=== PATIENT | female | born 1995 | race Hispanic/Latino ===

== ENCOUNTER 2019-07-03 22:35 | Day surgery (SDC) | payer OTHER ==
[2019-07-03 22:56] VITALS: BMI 19.9
[2019-07-03] MEDS ORDERED: hydrALAZINE 20 MG/ML VIAL SLOW IVP PRN (23:27)
[2019-07-04 00:33] LABS: Bacteria/HPF None Seen HPF (None Seen); Bilirubin Negative (Negative); Blood, Urine 1+ (Negative); Clarity Turbid (Clear); Glucose, Urine (Dipstick) Normal (Negative); Leukocyte Negative Leu/uL (Negative); Nitrite Negative (Negative); Protein, Urine (Dipstick) 10 mg/dL (Neg-Trace); Squamous Epithelial 0-3 HPF (0-3); Urobilinogen Normal mg/dL (Less than 2); WBC/HPF 0-3 HPF (0-3)
[2019-07-04 00:34] LABS: Urine Culture Reflex No No
--- NOTE | 2019-07-04 01:03 | PDOC.LDHP ---
Labor and Delivery H&P Chief complaint: other (Spotting during urination) HPI: Mrs. Ronald Smalls is a 23 y/o female at 31W GA dated by 1st trimester US who presents to L&D because of an isolated episode of spotting during urination earlier this evening. The patient states that while she was urinating she felt an uncomfortable increase in her voided fluid, and noticed that there were several drops of blood in the toilet immediately thereafter. Mrs. Ronald Smalls was initially unconcerned, but eventually decided to present to L&D "just to be sure that nothing was wrong." She admits to some occasional abdominal cramping, but denies any significant abdominal pain, repeat episodes of bleeding, dysuria, polyuria, vaginal discharge, ongoing STI, history of hemorrhoids, bloody stools, N/V/D, chest pain, shortness of breath, headaches or changes in vision. In L&D, Mrs. Ronald Smalls had vital signs that were all within normal limits. heart tones were reassuring, with a baseline in the 140s, with positive accelerations and absent decelerations. No contractions were present. Current gestational age (weeks): 31 Due date: 09/04/19 Dating criteria: first trimester ultrasound Grav: 1 Para: 0 OB History Details: Mrs. Ronald Smalls reports no significant problems during this , aside from a recent Chlamydia infection that was treated with antibiotics (HERNAN pending). She reports good weight gain, movement, and a lack of worrisome symptoms such as headaches, changes in vision, chest pain, or shortness of breath. Current complications: none Abnormal US findings: No Past Medical History: None. Current medications: pre- vitamins Previous surgical history: none Allergies/Adverse Reactions: Allergies Allergy/AdvReac Type Severity Reaction Status Date / Time No Known Allergies Allergy Verified 07/03/19 22:51 Social history: none - Physical Exam Vital signs reviewed and normal: yes General: NAD, resting Heart: RRR Lungs: nonlabored breathing Abdomen: NTTP Extremeties: no edema FHT: category 1 [place] contractions every: None - OB Labs Blood type: A RH: negative Antibody Screen: unknown HIV: negative RPR: negative HEPSAg: unknown 1 hour GCT: unknown GBS: unknown Urine drug screen: not done - Plan Plan: observation in L&D -: 1. Spotting during Urination -Likely benign, possibly secondary to internal hemorrhoids -Patient lacks worrisome abdominal pain or trauma -Recent STI treated with antibiotics, HERNAN results pending -Patient will f/u with PCP on 07/13/19 at Clinic -UA performed in L&D lacked Leukocyte Esterase, Nitrites, WBCs, or +++Bacteria -UA Culture: Pending -Patient was advised to return to L&D if she felt a gush of fluid, if vaginal discharged occurred, if excessive bleeding occurred or would not stop, or if significant ABD pain occurred Dispo: PATSY Addendum - Attending - Attending Attestation Date/Time: 07/04/19 2907 I personally evaluated the patient and discussed the management with Dr. Barakat I agree with the History, Examination, Assessment and Plan documented above with any addition or exceptions noted below. Pt presented with isolated episode of spotting. no other complaints vital signs 109/66 78 98.4 nad fht baseline 140s mod ltv +accels, no decels; toco with irritability us neg for le,nitrites, bacteria, wbc a/p discharged home with reassurance. f/u as scheduled with primary ob, seek medical attention if bleeding worsens or persists
== END 2019-07-04 00:54 | disposition home health service (06) ==
LOC: L&D/OP 22:35
PROVIDERS: ATTEND Obstetrics & Gynecology
DX: O26.853 Spotting complicating pregnancy, third trimester (principal); Z3A.31 31 weeks gestation of pregnancy
CPT/HCPCS: 81001; 87086; 99283

== ENCOUNTER 2019-09-06 19:05 | Day surgery (SDC) | payer OTHER ==
[2019-09-06 20:12] VITALS: BP 121/87; BMI 21.2
[2019-09-06 20:19] VITALS: TEMP 99.3
--- NOTE | 2019-09-06 22:02 | PDOC.FPRHP ---
- History of Present Illness Chief Complaint: Contractions History of Present Illness: Mrs. Noonan is a 24 y/o female who presents to the LD with a CC of contractions. She states that the contractions began intermittently yesterday, but today they have increased in frequency and become more regularly. Additionally, she states that she lost her mucous plug and has had minimal bloody discharge. She denies any significant loss of fluid or loss of movement, as well as headaches, changes in vision, chest pain, SOB, N/V /D, fevers, chills or recent trauma. - Allergies/Adverse Reactions Allergies Allergy/AdvReac Type Severity Reaction Status Date / Time No Known Allergies Allergy Verified 09/06/19 20:13 - History PMHx: PSHx: FHx: Social: - Vital signs BP: [] HR: [] RR: [] Tmax: [] Pox: []% on [] Wt: [] FMR H&P: Upper Level - Plan Date/Time: 09/06/19 2200 I, [], have evaluated this patient and agree with findings/plan as outlined by technology risk intern resident. Pertinent changes/additions are listed here.
--- NOTE | 2019-09-06 22:04 | PDOC.FPROB ---
FMR OB H&P: HPI - History of Present Illness Chief Complaint: Contractions History of Present Illness: Mrs. Noonan is a 24 y/o female who presents to the LD with a CC of contractions. She states that the contractions began intermittently yesterday, but today they have increased in frequency and have become more regular. Additionally, she states that she lost her mucous plug and has had minimal bloody discharge. She denies any significant loss of fluid or loss of movement, as well as headaches, changes in vision, chest pain, SOB , N/V/D, fevers, chills or recent trauma. She is currently scheduled for IOL on 09/07/19 at 1900. Primary Care Physician: Dr. Setphanie Isbell ([facility]) FMR OB H&P: Current - Care : 1 Para: 0 Gestational age: 40.2W Dating Criteria: 8W US Course/Complications: Chlamydia infection, treated empirically with antibiotics. HERNAN confirmed. - OB Labs Blood type: A RH: positive Antibody Screen: negative HIV: negative RPR: negative HepBsAg: negative Rubella: immune Quad screen: unknown Urine drug screen: not done Gonorrhea: negative Chlamydia: negative GBS: negative FMR OB H&P: History - Past Medical History PMH: Anemia - OB History OB History: , complicated by Chlamydia infection. 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 - Surgical History Sx History: None - Social History Social History: Denies x3 - Family History Family History: Non-Contributory FMR OB H&P: Medications - Current Allergies/Adverse Reactions: Allergies Allergy/AdvReac Type Severity Reaction Status Date / Time No Known Allergies Allergy Verified 09/06/19 20:13 FMR OB H&P: ROS - Review of Systems General: reports: fatigue. denies: fever/chills, recent trauma Eyes: denies: eye pain, vision changes, scotomas, floaters ENT: denies: nasal congestion, rhinorrhea, frequent nose bleed, ringing in ears , sore throat Cardiovascular: denies: chest pain, edema Respiratory: denies: cough, congestion, shortness of breath Gastrointestinal: reports: abdominal pain (Contractions). denies: indigestion, cramping, nausea, vomiting, diarrhea Genitourinary (Female): reports: vaginal discharge (Mucous Plug), vaginal bleeding (Scant), contractions. denies: incontinence, dysuria, vaginal pain, vaginal pressure Neurologic: denies: numbness, syncope, seizures, weakness, headache Breast: denies: nipple changes, pain/tenderness, other (Denies Discharge) Hematologic/Lymphatic: denies: prolonged or excessive bleeding FMR OB H&P: Vital Signs - Maternal Vital signs: Vital Signs - First Documented Temp Pulse Resp BP Pulse Ox 99.3 F 78 14 121/87 98 09/06/19 19:23 09/06/19 19:23 09/06/19 19:23 09/06/19 19:23 09/06/19 19:23 - Heart Tones Baseline: 140 Variability: moderate Acceleration: present Deceleration: absent [place] contractions every: Q6M FMR OB H&P: Physical Exam - Physical Exam General: NAD, awake, alert and oriented HEENT: normocephalic and atraumatic, PERRLA, EOMI, MMM, conjunctiva clear, no scleral icterus, grossly normal vision, grossly normal hearing, normal nasal mucosa, oropharynx clear, good dention Neck: supple, FROM, trachea midline, no LAD Chest: non-tender to palpation, no lesions Breast: symmetric, non-tender, no skin changes Heart: RRR, normal S1/S2, no murmurs/rubs/gallops, pulses present, no edema General: CTAB, no respiratory distress, good air movement, no rales/rhonchi, no wheezing, no retractions Abdomen: gravid, non-tender, no masses Musculoskeletal: pulses present, FROM in all four extremities, no misalignment/ asymmetry, no atrophy Neurological: sensation to pain,touch and proprioception grossly normal Skin: no rash, no jaundice Lymphatic: no unusual bruising or bleeding, no purpura, no petechia, no LAD Psychiatric: intact recent and remote memory, good judgement and insight, normal mood and affect - Pelvic Exam Vulva: normal hair distribution, no masses, no lesions, no discharge, normal rugae Cervix: no masses SVE: 60/-3 Dc score: 3 Membranes: Intact Presentation: Cephalic FMR OB H&P: A/P Disposition: 1. Labor Check -Patient history and physical exam consistent w/ contractions -Mucous Plug lost on 09/06/19 -No loss of fluid noted, only scant bleeding -FHT measured in 140s, with moderate variability, present accelerations and absent decelerations -Physical exam unremarkable -Initial SVE was 60/-3 Dispo: Monitor on L&D for ~2H to assess for additional cervical change. If no cervical change occurs and maternal vitals / FHT remain stable, DC to home with strict return instructions if contractions increase in frequency or if loss of fluid or bloody show occurs. Expected LOS < 4H Discussion: Date/Time: 09/06/192202 This H&P was discussed with [] and [] who agree with the above documentation and plan. Addendum - Attending - Attending Attestation Date/Time: 09/07/19231 I personally evaluated the patient and discussed the management with Dr. Huston. I agree with the History, Examination, Assessment and Plan documented above with any addition or exceptions noted below.
== END 2019-09-06 21:55 | disposition home or self-care (01) ==
LOC: L&D/OP 19:05
PROVIDERS: ATTEND Family Medicine
DX: O47.1 False labor at or after 37 completed weeks of gestation (principal); O48.0 Post-term pregnancy; Z3A.40 40 weeks gestation of pregnancy

== ENCOUNTER 2019-09-07 19:14 | Inpatient (IN) | payer MEDICAID, OTHER, SELFPAY ==
[2019-09-07] MEDS: Lactated Ringer's 1,000 ML IV SCH (20:00)
[2019-09-07 20:51] LABS: Hemoglobin 12.3 g/dL (12.0-16.0); Mean Corpuscular HGB CONC 34.1 g/dL (32.0-36.0); Mean Corpuscular Volume 76.3 fL (78.0-98.0); Mean Platelet Volume 10.5 fL (7.4-10.4); Platelet Count 164 thou/uL (130-400); RBC Distribution Width 19.3 % (11.5-14.5); Red Blood Cell (RBC) Count 4.71 mill/uL (4.20-5.40); White Blood Cell (WBC) Count 9.4 thou/uL (4.8-10.8)
[2019-09-07 21:11] VITALS: BMI 21.2
[2019-09-07] MEDS ORDERED: Ibuprofen 800 MG TAB PO PRN (21:18)
[2019-09-07] MEDS ORDERED: Diphenoxylate HCl/Atropine Tablet PO PRN ×2 (21:18)
[2019-09-07] MEDS ORDERED: Lidocaine 1% (PF) 30 ML VIAL SC PRN (21:18)
[2019-09-07] MEDS ORDERED: Promethazine HCl 25 MG/ML VIAL IM PRN (21:18)
[2019-09-07] MEDS ORDERED: hydrALAZINE 20 MG/ML VIAL SLOW IVP PRN (21:18)
[2019-09-07] MEDS ORDERED: Methylergonovine 0.2 MG/ML VIAL IM PRN (21:18)
[2019-09-07] MEDS ORDERED: Carboprost 250 MCG/ML AMP IM PRN (21:18)
[2019-09-07] MEDS ORDERED: Ondansetron PF 4 MG/2 ML Vial IVP PRN (21:18)
[2019-09-07] MEDS ORDERED: Acetaminophen 500 MG TAB PO PRN (21:18)
[2019-09-07] MEDS ORDERED: Misoprostol 200 MCG TAB PR PRN (21:18)
[2019-09-07] MEDS ORDERED: Butorphanol Tartrate 1 MG/ML VIAL SLOW IVP PRN (21:18)
[2019-09-07 21:27] LABS: Syphilis Antibody Nonreactive (Nonreactive); Syphilis Antibody Index 0.03 S/CO (<1.00 Non-Reactive)
--- NOTE | 2019-09-07 21:58 | PDOC.FPROB ---
FMR OB H&P: HPI - History of Present Illness Chief Complaint: IOL History of Present Illness: Mrs. Noonan is a 24 y/o female at 40.3W GA by 8W US who presents to L&D for IOL. She presented to L&D 1 day prior with a CC of contractions, and states that her contractions have been consistent in intensity and occurring Q5-7M since that time. She recently lost her mucous plug and has had minimal bloody discharge since that time. She denies any significant loss of fluid or loss of movement, as well as headaches, changes in vision, chest pain, SOB, N/V/D, fevers, chills or recent trauma. Primary Care Physician: Dr. Stephanie Isbell ([facility]) FMR OB H&P: Current - Care : G1 Para: 0 Gestational age: 40.3W Dating Criteria: 8W US Total weight gain: 10 LBS Course/Complications: Chlamydia infection, treated empirically w/ HERNAN - OB Labs Blood type: A RH: positive Antibody Screen: negative HIV: negative RPR: negative HepBsAg: negative Rubella: immune Quad screen: unknown Urine drug screen: not done Gonorrhea: negative Chlamydia: negative GBS: negative H&H: 12.3 / 35.9 Platelets: 164 FMR OB H&P: History - Past Medical History PMH: Remote Chlamydia Infection, Anemia - OB History OB History: - INFORMATION STRATEGIST History INFORMATION STRATEGIST History: None - Surgical History Sx History: None - Social History Social History: Denies x3 - Family History Family History: Non-Contributory FMR OB H&P: Medications - Current Home Medications: Medication Instructions Recorded Confirmed Type Ferrous Sulfate 1 tab PO DAILY 09/07/19 09/07/19 History Acetaminophen [Tylenol Regular 650 mg PO Q4H PRN tab 09/10/19 Rx Strength] Docusate Calcium [Surfak] 240 mg PO BID #60 cap 09/10/19 Rx Ibuprofen [Motrin] 800 mg PO Q8HR #30 tab 09/10/19 Rx Vitamin 1 tab PO DAILY #30 tab 09/10/19 Rx Allergies/Adverse Reactions: Allergies Allergy/AdvReac Type Severity Reaction Status Date / Time No Known Allergies Allergy Verified 09/06/19 20:13 FMR OB H&P: ROS - Review of Systems General: reports: fatigue. denies: fever/chills, weight/appetite/sleep changes , night sweats, recent trauma Eyes: denies: eye pain, vision changes ENT: denies: nasal congestion, rhinorrhea, frequent nose bleed, sinus pain/ pressure, ringing in ears, sore throat Cardiovascular: denies: chest pain, palpitation, edema Respiratory: denies: cough, congestion, shortness of breath Gastrointestinal: denies: indigestion, nausea, vomiting, diarrhea Genitourinary (Female): reports: vaginal discharge (Mucous Plug), contractions ( Q5-7M). denies: dysuria, hematuria Musculoskeletal: denies: pain, stiffness Breast: denies: skin changes, nipple changes Hematologic/Lymphatic: denies: prolonged or excessive bleeding FMR OB H&P: Vital Signs - Maternal Vital signs: Vital Signs - First Documented Temp Pulse Resp BP Pulse Ox 98.8 F 72 18 124/81 99 09/07/19 20:20 09/07/19 20:20 09/07/19 20:20 09/07/19 20:20 09/07/19 20:20 - Heart Tones Baseline: 135 Variability: moderate Acceleration: present Deceleration: absent FMR OB H&P: Physical Exam - Physical Exam General: NAD, awake, alert and oriented HEENT: normocephalic and atraumatic, PERRLA, EOMI, MMM, conjunctiva clear, no scleral icterus, grossly normal vision, grossly normal hearing, normal nasal mucosa, oropharynx clear, good dention Neck: supple, FROM, trachea midline, no LAD Chest: non-tender to palpation, no lesions Breast: symmetric, no skin changes, no nipple discharge Heart: RRR, normal S1/S2, no murmurs/rubs/gallops, pulses present, no edema General: CTAB, no respiratory distress, good air movement, no rales/rhonchi, no wheezing, no retractions Abdomen: gravid, non-tender, no masses Musculoskeletal: pulses present, FROM in all four extremities, no misalignment/ asymmetry, no atrophy Neurological: sensation to pain,touch and proprioception grossly normal, no tremor, no focal deficit Skin: no rash, no jaundice Lymphatic: no unusual bruising or bleeding, no purpura, no petechia, no LAD Psychiatric: intact recent and remote memory, good judgement and insight, normal mood and affect - Pelvic Exam SVE: 1/80%/High Dc score: 4 Membranes: Intact Presentation: Cephalic FMR OB H&P: Results - Labs Lab results: Laboratory Results - last 24 hr 09/07/19 09/07/19 09/07/19 20:27 20:27 20:27 WBC 9.4 RBC 4.71 Hgb 12.3 Hct 35.9 L MCV 76.3 L MCH 26.0 L MCHC 34.1 RDW 19.3 H Plt Count 164 MPV 10.5 H Syphilis IgG/IgM Ab Nonreactive Blood Type A POSITIVE Antibody Screen NEGATIVE 09/07/19 21:21 WBC RBC Hgb Hct MCV MCH MCHC RDW Plt Count MPV Syphilis IgG/IgM Ab Blood Type A POSITIVE Antibody Screen FMR OB H&P: A/P - Problem List (1) Intrauterine Status: Acute Code(s): Z34.90 - ENCNTR FOR SUPRVSN OF NORMAL , UNSP, UNSP TRIMESTER Disposition: 1. SIUP w/ IOL -Patient currently stable in L&D with unremarkable ROS and physical exam -FHT: WNL -LR @ 125 ml/hr -Cytotec placed at 2233 -SVE Q4H -Epidural: Pending Code Status: Full Code Diet: Clear Liquids Activity: Ad Jessica DVT PPx: SCDs Dispo: Patient is currently stable on L&D s/p Cytotec placement. Continue to monitor maternal / vital signs w/ SVE Q4H. Evaluate need for epidural at next encounter. Expected LOS > 48H Discussion: Date/Time: 09/07/192157 This H&P was discussed with [] and [] who agree with the above documentation and plan. Addendum - Attending - Attending Attestation Date/Time: 09/12/19 1476 I personally evaluated the patient and discussed the management with Dr. Huston at time of admission. I agree with the History, Examination, Assessment and Plan documented above with any addition or exceptions noted below.
[2019-09-07] MEDS: Misoprostol 100 MCG TAB VAG SCH (22:33)
[2019-09-07 23:22] LABS: HBSAg Index 0.16 S/CO (0-0.99); Hep B Surf Ag Non-Reactive S/CO (NonReactive)
[2019-09-08] MEDS ORDERED: Fentanyl 4 mcg/Bup 0.1% Cadd 100 ML ONE (02:39)
[2019-09-08] MEDS ORDERED: Lactated Ringer's 500 ML IV PRN (03:11)
[2019-09-08] MEDS ORDERED: diphenhydrAMINE 50 MG/ML VIAL IVP PRN (03:11)
[2019-09-08] MEDS ORDERED: ePHEDrine/0.9% NaCl/PF SYRINGE 50 mg/10 ml SLOW IVP PRN (03:11)
[2019-09-08] MEDS: Lactated Ringer's 1,000 ML IV SCH ×2 (03:11→07:58)
[2019-09-08] MEDS ORDERED: Ondansetron PF 4 MG/2 ML Vial IVP PRN ×2 (03:11→14:19)
[2019-09-08] MEDS ORDERED: Promethazine HCl 25 MG/ML VIAL IM PRN ×2 (03:11→14:19)
[2019-09-08] MEDS ORDERED: Acetaminophen 325 MG TAB PO PRN (03:11)
[2019-09-08] MEDS ORDERED: Naloxone HCl 0.4 mg/ml Vial IVP PRN ×2 (03:11)
[2019-09-08] MEDS: Misoprostol 100 MCG TAB VAG SCH ×3 (03:12→13:38)
[2019-09-08] MEDS ORDERED: Fentanyl 4 mcg/Bupivacaine 0.1% Cassette 100 ML EPIDURAL SCH (03:15)
[2019-09-08] MEDS ORDERED: Communication Order-Pharmacy FS SCH (03:15)
--- NOTE | 2019-09-08 04:56 | PDOC.LDPN ---
Labor & Delivery Progress Note - Subjective Subjective: painful contractions - Objective Vital signs reviewed and normal: yes General: NAD, breathing through contractions Uterine fundus: non tender SVE: 2:30 Dilation: 7 Effacement: 100% Station: 0 FHT: category 1, variability present [place] contractions every: 4 minutes - Assessment (1) Intrauterine Code(s): Z34.90 - ENCNTR FOR SUPRVSN OF NORMAL , UNSP, UNSP TRIMESTER Current Visit: Yes Status: Acute Plan: continue plan of care -: 24 y/o female at 40.4W GA by 8W US here for IOL 1. SIUP w/ IOL -FHT: WNL, CAT 1 strip -LR @ 125 ml/hr -Cytotec placed at 2233 -SVE 2:30 7/100/0. -Pt is going to get epidural at this time. Pt contraction pattern regular. Will recheck after epidural placement. Continue to monitor. No need for augmentation of labor at this time.
--- NOTE | 2019-09-08 05:02 | PDOC.LDPN ---
Labor & Delivery Progress Note - Subjective Subjective: comfortable - Objective Vital signs reviewed and normal: yes General: NAD, resting Uterine fundus: non tender SVE: 4:30 Dilation: 9 Effacement: 100% Station: 0 FHT: category 1, variability present [place] contractions every: 2-3 minutes Other exam findings: SROM - Assessment (1) Intrauterine Code(s): Z34.90 - ENCNTR FOR SUPRVSN OF NORMAL , UNSP, UNSP TRIMESTER Current Visit: Yes Status: Acute Plan: continue plan of care -: 24 y/o female at 40.4W GA by 8W US here for IOL 1. SIUP w/ IOL -FHT: WNL, CAT 1 strip -LR @ 125 ml/hr -Cytotec placed at 2233 -SVE 4:30 9/100/0. SROM sometime after epidural was placed. -Epidural in place. Pain well controlled -Will continue to check often and as needed.
--- NOTE | 2019-09-08 06:12 | PDOC.LDPN ---
Labor & Delivery Progress Note - Subjective Subjective: comfortable - Objective Vital signs reviewed and normal: yes General: NAD, resting Uterine fundus: non tender SVE: 5:30 Dilation: 9.5, anterior lip noted Effacement: 100% Station: 0 FHT: category 1, variability present [place] contractions every: 6 minutes - Assessment (1) Intrauterine Code(s): Z34.90 - ENCNTR FOR SUPRVSN OF NORMAL , UNSP, UNSP TRIMESTER Current Visit: Yes Status: Acute Plan: continue plan of care -: 24 y/o female at 40.4W GA by 8W US here for IOL 1. SIUP w/ IOL -FHT: WNL, CAT 1 strip -LR @ 125 ml/hr -Cytotec placed at 2233 -SVE 5:30 9.5, anterior lip/100/0. SROM sometime after epidural was placed. -Epidural in place. Pain well controlled -Will continue to check and anticipate delivery soon.
--- NOTE | 2019-09-08 07:42 | PDOC.LDPN ---
Labor & Delivery Progress Note - Subjective Subjective: comfortable, vaginal pressure, other (Nauseated) - Objective Vital signs reviewed and normal: yes General: NAD, resting Uterine fundus: non tender SVE: 7:00 Dilation: 9.5, anterior lip Effacement: 100% Station: 0 FHT: category 1, variability present [place] contractions every: 3-5 minutes - Assessment (1) Intrauterine Code(s): Z34.90 - ENCNTR FOR SUPRVSN OF NORMAL , UNSP, UNSP TRIMESTER Current Visit: Yes Status: Acute Plan: continue plan of care -: 24 y/o female at 40.4W GA by 8W US here for IOL 1. SIUP w/ IOL -FHT: WNL, CAT 1 strip -LR @ 125 ml/hr -Cytotec placed at 2233 -SVE 7:00 9.5, anterior lip/100/0. SROM sometime after epidural was placed. -Epidural in place. Pain well controlled -Will continue to check and anticipate delivery soon.
[2019-09-08] MEDS: NS / Oxytocin 40 units/1000ml 1,000 ML IV PRN ×2 (11:04→14:18)
[2019-09-08] MEDS ORDERED: Ketorolac Tromethamine 30 MG/ML VIAL ONE (11:08)
[2019-09-08] MEDS ORDERED: Acetaminophen 500 MG TAB ONE (11:13)
[2019-09-08] MEDS ORDERED: Acetaminophen 500 MG TAB PO SCH (11:30)
[2019-09-08] MEDS ORDERED: Ketorolac Tromethamine 30 MG/ML VIAL IVP SCH (11:30)
--- NOTE | 2019-09-08 11:46 | PDOC.OPDEL ---
Addendum entered and electronically signed by Selam Abreu MD 09/08/19 15:36 : Correction: 24yo. Original Note: OB Operative/Delivery Note Delivery Dr/Surgeon: Dr. Abreu, Dr. Perez, Dr. Vanegas Weeks gestation: 40 (4days) - Additional Findings/Plan Compilations/Other Findings: Delivering Residents: Dr. Abreu and Dr. Perez Attending: Dr. Vanegas Procedure: Spontaneous Vaginal Delivery Anesthesia: epidural, Local for Repair EBL: qBL 105mL Pre-op Diagnosis: 1. Term intrauterine in labor 2. Hx of chlamydia w/ negative test of cure. Post-op Diagnosis: 1. Term intrauterine , delivered 2. same as above 3. Chorioamnionitis 4. Gestational hypertension, rule out preeclampsia Indications: A 24 y/o female presents to L&D for elective induction of labor. Delivery Note: This is 24 yo F @ 40.4wks who delivered a viable M infant at 11:01am on 09/08/2019. Following an uneventful antepartum course, a vigorous male was delivered over an intact perineum in the occipitoanterior position. Anterior Shoulder and then remainder of the body delivered. No nuchal cord. The head was held down and mouth and nares were bulb suctioned. Cord clamped and cut and cord blood collected. At that time a foul odor was noticed and maternal temperature was taken and found to be 102.0, there was suspicion for maternal infection. Blood was collected for analysis. Placenta delivered intact with a 3 vessel cord and sent for pathology. Fundal massage was performed and the fundus was firm. The cervix and vagina were inspected and found to have small perineal first degree laceration and small abrasion reparied with 2-[address] and 4-0 vicryl on PS2 in the usual fashion with good approximation and hemostasis after a local anesthetic was injected at site due to failing epidural. Infant went to nursery in good condition for routine care plus sepsis rule out. Will place on antibiotics (AMP/Gent) for chorioamnionitis. Apgars were 8/9 at 1 & 5 minutes, respectively. Patient tolerated delivery well and went to after routine recovery/care. Attending Note: I was present and participated in the above documented procedure. Patient admitted for elective IOL at 40.3 wks. Miso x 1. SROM with clear fluid at 0200. Progressed without complications. No FSE or IUPC used. Male delivered in OA position on 09/08/19 at 11:01. APGARs 8/9. No resuscitation needed. Maternal fever of 102 with foul smelling amniotic fluid. No maternal temp prior. No maternal or tachycardia. No abnormal discharge. Mother with working epidural so unable to assess for fundal tenderness. 1 dose of Ancef provided to help with coverage for GBS and E.coli. Hemostatic 2nd degree. Repaired in usual fashion. Uncomplicated. Labial laceration to right. Repaired with 5 simple interrupted stitches. Mother transferred to for routine care. Placenta to path. transfered to well baby for workup and empiric antibx treatment. QBL = 217 mL ABrayMD Post delivery plan: routine recovery
[2019-09-08 11:52] LABS: Hemoglobin 12.2 g/dL (12.0-16.0); Mean Corpuscular Hemoglobin 26.9 pg (27.0-31.0); Mean Corpuscular Volume 76.7 fL (78.0-98.0); Mean Platelet Volume 10.2 fL (7.4-10.4); Platelet Count 140 thou/uL (130-400); RBC Distribution Width 19.2 % (11.5-14.5); Red Blood Cell (RBC) Count 4.54 mill/uL (4.20-5.40); White Blood Cell (WBC) Count 16.1 thou/uL (4.8-10.8)
[2019-09-08] MEDS: CEFAZOLIN 2 GM in Premix Bag 1 BAG IVPB SCH ×2 (11:55→19:46)
[2019-09-08 12:09] LABS: ALT (SGPT) 10 U/L (8-55); AST (SGOT) 21 U/L (5-34); Albumin 2.7 g/dL (3.5-5.0); Alkaline Phosphatase 200 U/L (40-110); Anion Gap 10 mmol/L (10-20); BUN (Urea Nitrogen) 5 mg/dL (7.0-18.7); Bilirubin, Total 0.3 mg/dL (0.2-1.2); Calc. Creatinine Clearance 167 mL/min (70-130); Calcium 7.8 mg/dL (7.8-10.44); Carbon Dioxide 20 mmol/L (22-29); Chloride 106 mmol/L (98-107); Estimated GFR-MDRD Greater than 90; Globulin 2.7 g/dL (2.4-3.5); Glucose 103 mg/dL (70-105); Protein, Total 5.4 g/dL (6.0-8.3); Sodium 133 mmol/L (136-145)
[2019-09-08 12:15] LABS: Band 26 % (5-11); Burr Cells SLIGHT = 2-5 cells (100X) (0-1/hpf); Lymphocytes 3 % (21-51); MDiff Complete? YES; Microcytosis SLIGHT = 6-15 cells (100X) (0-5/hpf); Monocytes 9 % (0-10); Neutrophil 61 % (42-75); Ovalocytes SLIGHT = 2-5 cells (100X) (0-1/hpf); Platelet Morphology Comment Appears Adequate; Polychromasia SLIGHT = 2-3 cells (100X) (0-2/hpf); Reactive Lymphocytes 1 % (0-10); Tear Drops SLIGHT = 2-5 cells (100X) (0-1/hpf)
[2019-09-08 12:16] LABS: Potassium 2.8 mmol/L (3.5-5.1)
[2019-09-08] MEDS: Potassium Chloride 20 MEQ TAB PO SCH ×2 (13:55→17:18)
[2019-09-08 14:10] LABS: Creatinine, Urine 38.44 mg/dL (47-110)
[2019-09-08] MEDS ORDERED: Benzocaine-Menthol 82.5 ML CAN TOP PRN (14:19)
[2019-09-08] MEDS ORDERED: Misoprostol 200 MCG TAB VAG PRN (14:19)
[2019-09-08] MEDS ORDERED: Bisacodyl 10 MG SUPP PR PRN (14:19)
[2019-09-08] MEDS ORDERED: hydrALAZINE 20 MG/ML VIAL SLOW IVP PRN (14:19)
[2019-09-08] MEDS ORDERED: Lanolin Ointment 7 GM TUBE TOP PRN (14:19)
[2019-09-08] MEDS ORDERED: Milk Of Magnesia 30 ML UDCUP PO PRN (14:19)
[2019-09-08] MEDS ORDERED: diphenhydrAMINE 25 MG CAP PO PRN (14:19)
[2019-09-08] MEDS ORDERED: Preparation H Ointment 28 GM TUBE PR PRN (14:19)
[2019-09-08] MEDS ORDERED: Methylergonovine 0.2 MG/ML VIAL IM PRN (14:19)
[2019-09-08] MEDS ORDERED: NS / Oxytocin 40 units/1000ml 1,000 ML IV SCH (14:19)
[2019-09-08] MEDS: Ibuprofen 800 MG TAB PO SCH ×2 (14:36→21:53)
--- NOTE | 2019-09-08 16:19 | PDOC.EVN ---
Event Note - Event Note Event Note: Pt febrile at the end of delivery to 102F, given ancef and blood and urine cultures sent. Suspected IAI. Will follow vitals closely. Pt did have several bps in the 140s-150s range. Results of preE workup positive for preE without severe features based on bp's and pr/cr. No mag indicated at this time. Attending Note: Will treat with ppx dose of cephalosporin to cover GBS and E coli. Follow closely. Kaitlynn
[2019-09-08 16:54] LABS: Potassium 2.8 mmol/L (3.5-5.1)
[2019-09-08] MEDS ORDERED: Magnesium Oxide 400 MG TAB PO SCH (17:15)
[2019-09-08] MEDS ORDERED: Potassium Chloride 20 MEQ TAB PO SCH (17:15)
[2019-09-08] MEDS: Ferrous Sulfate 325 MG TAB PO SCH (17:22)
[2019-09-08 19:21] LABS: Bilirubin Negative (Negative); Blood, Urine 3+ (Negative); Clarity Clear (Clear); Glucose, Urine (Dipstick) Normal (Negative); Leukocyte 75 Leu/uL (Negative); Nitrite Negative (Negative); Protein, Urine (Dipstick) 70 mg/dL (Neg-Trace); RBC/HPF 21-50 HPF (0-3); Squamous Epithelial 0-3 HPF (0-3); Urobilinogen Normal mg/dL (Less than 2)
[2019-09-08 19:29] LABS: Bacteria/HPF 2+ HPF (None Seen)
[2019-09-08] MEDS: Docusate Calcium (SURFAK) 240 MG CAP PO SCH (21:53)
[2019-09-09] MEDS: HYDROcodone/Acetaminophen 5/325 mg Tablet PO PRN ×3 (04:37→20:47)
[2019-09-09] MEDS: CEFAZOLIN 2 GM in Premix Bag 1 BAG IVPB SCH (04:37)
[2019-09-09 05:45] LABS: ALT (SGPT) 13 U/L (8-55); AST (SGOT) 32 U/L (5-34); Albumin 2.5 g/dL (3.5-5.0); Alkaline Phosphatase 152 U/L (40-110); Anion Gap 10 mmol/L (10-20); BUN (Urea Nitrogen) 4 mg/dL (7.0-18.7); Bilirubin, Total 0.3 mg/dL (0.2-1.2); Calc. Creatinine Clearance 161 mL/min (70-130); Calcium 8.2 mg/dL (7.8-10.44); Carbon Dioxide 22 mmol/L (22-29); Chloride 110 mmol/L (98-107); Estimated GFR-MDRD Greater than 90; Globulin 2.5 g/dL (2.4-3.5); Glucose 80 mg/dL (70-105); Sodium 139 mmol/L (136-145)
[2019-09-09 06:27] LABS: #Eosinphils 0.1 thou/uL (0.0-0.7); #Lymphocytes 0.9 thou/uL (1.20-3.40); #Monocytes 0.4 thou/uL (0.11-0.59); #Neutrophils 9.8 thou/uL (1.40-6.50); %Basophils 0.1 % (0.0-1.0); %Eosinophils 0.5 % (0.0-10.0); %Lymphocytes 7.8 % (21.0-51.0); %Neutrophils 87.6 % (42.0-75.0); Anisocytosis MODERATE=16-30 cells (100X) (0-5/hpf); Hemoglobin 10.5 g/dL (12.0-16.0); MDiff Complete? YES; Mean Corpuscular HGB CONC 33.8 g/dL (32.0-36.0); Mean Corpuscular Volume 79.9 fL (78.0-98.0); Mean Platelet Volume 9.8 fL (7.4-10.4); Platelet Count 122 thou/uL (130-400); RBC Distribution Width 19.6 % (11.5-14.5); White Blood Cell (WBC) Count 11.2 thou/uL (4.8-10.8)
--- NOTE | 2019-09-09 06:31 | PDOC.OBPPN ---
FMR OB PN: Subj - Interval History Hospital Day: 2 Day: 1 Chief Complaint: @ 11:01 (09/08/2019) to [facility] Doherty infant. Indentification: 24yo delivered at 40.4wks EGA. Elective induction. Interval History: Mom did well overnight. She had mild pain relieved by oral medication. FMR OB PN: Obj - Maternal Vital signs: Selected Entries 09/09/19 04:44 Temperature 98.7 F Pulse Rate 79 Blood Pressure 113/72 [Semi-Fowlers] Respiratory 18 Rate O2 Sat by Pulse 98 Oximetry Oxygen Delivery Room Air Method - Urine output I&O: 09/07/19 09/08/19 09/09/19 06:59 06:59 06:59 Output Total 217 Balance -217 - Lochia Lochia: Slightly more than a period. - Pain Management Intervention: oral medication FMR OB PN: Exam - Physical Exam General: NAD, awake, alert and oriented HEENT: normocephalic and atraumatic, PERRLA, EOMI, MMM, conjunctiva clear, grossly normal vision, grossly normal hearing Neck: supple, trachea midline Breast: symmetric Heart: RRR, normal S1/S2, no murmurs/rubs/gallops, pulses present, no edema General: CTAB, no respiratory distress, good air movement, no rales/rhonchi, no wheezing Abdomen: soft, bowel sound present Musculoskeletal: normal gait and station, pulses present Neurological: DTR +2, no clonus, no tremor, no focal deficit Skin: no rash, capillary refill <2 seconds : appropriately tender Lymphatic: no unusual bruising or bleeding, no petechia Psychiatric: intact recent and remote memory - Pelvic Exam : normal lochia FMR OB PN: Data - Labs Lab results: Laboratory Results - last 24 hr 09/08/19 09/08/19 09/08/19 11:30 11:30 11:37 WBC RBC Hgb Hct MCV MCH MCHC RDW Plt Count MPV Neutrophils % Neutrophils % (Manual) Band Neuts % (Manual) Lymphocytes % Lymphocytes % (Manual) Reactive Lymphs % Monocytes % Monocytes % (Manual) Eosinophils % Basophils % Neutrophils # Lymphocytes # Monocytes # Eosinophils # Basophils # Plt Morphology Comment Polychromasia Anisocytosis Microcytosis Tear Drop Cells Ovalocytes Paul Cells Sodium 133 L Potassium 2.8 L* Chloride 106 Carbon Dioxide 20 L Anion Gap 10 BUN 5 L Creatinine 0.54 L Estimated GFR (MDRD) Greater than 90 Glucose 103 Calcium 7.8 Magnesium Total Bilirubin 0.3 AST 21 ALT 10 Alkaline Phosphatase 200 H Serum Total Protein 5.4 L Albumin 2.7 L Globulin 2.7 Albumin/Globulin Ratio 1.0 L Procalcitonin Urine Color Light-Brown Urine Clarity Clear Urine pH 7.0 Ur Specific [place] 1.006 Urine Protein 70 A Urine Glucose (UA) Normal Urine Ketones Negative Urine Blood 3+ A Urine Nitrite Negative Urine Bilirubin Negative Urine Urobilinogen Normal Ur Leukocyte Esterase 75 A Urine RBC 21-50 A Urine WBC 4-6 A Ur Squamous Epith Cells 0-3 Urine Bacteria 2+ A U Random Total Protein 43 H Urine Creatinine 38.44 L 09/08/19 09/08/19 09/08/19 11:37 16:26 16:26 WBC 16.1 H RBC 4.54 Hgb 12.2 Hct 34.9 L MCV 76.7 L MCH 26.9 L MCHC 35.0 RDW 19.2 H Plt Count 140 MPV 10.2 Neutrophils % Neutrophils % (Manual) 61 Band Neuts % (Manual) 26 H Lymphocytes % Lymphocytes % (Manual) 3 L Reactive Lymphs % 1 Monocytes % Monocytes % (Manual) 9 Eosinophils % Basophils % Neutrophils # Not Reportable Lymphocytes # Not Reportable Monocytes # Eosinophils # Basophils # Plt Morphology Comment Appears Adequate Polychromasia SLIGHT = 2-3 cells Anisocytosis Microcytosis SLIGHT = 6-15 cells Tear Drop Cells SLIGHT = 2-5 cells Ovalocytes SLIGHT = 2-5 cells [place] Cells SLIGHT = 2-5 cells Sodium Potassium 2.8 L* Chloride Carbon Dioxide Anion Gap BUN Creatinine Estimated GFR (MDRD) Glucose Calcium Magnesium Total Bilirubin AST ALT Alkaline Phosphatase Serum Total Protein Albumin Globulin Albumin/Globulin Ratio Procalcitonin 0.22 Urine Color Urine Clarity Urine pH Ur Specific [place] Urine Protein Urine Glucose (UA) Urine Ketones Urine Blood Urine Nitrite Urine Bilirubin Urine Urobilinogen Ur Leukocyte Esterase Urine RBC Urine WBC Ur Squamous Epith Cells Urine Bacteria U Random Total Protein Urine Creatinine 09/08/19 09/09/19 09/09/19 16:26 05:09 05:09 WBC 11.2 H RBC 3.90 L Hgb 10.5 L Hct 31.2 L MCV 79.9 MCH 27.0 MCHC 33.8 RDW 19.6 H Plt Count 122 L MPV 9.8 Neutrophils % 87.6 H Neutrophils % (Manual) Not Reportable Band Neuts % (Manual) Lymphocytes % 7.8 L Lymphocytes % (Manual) Reactive Lymphs % Monocytes % 4.0 Monocytes % (Manual) Eosinophils % 0.5 Basophils % 0.1 Neutrophils # 9.8 H Lymphocytes # 0.9 L Monocytes # 0.4 Eosinophils # 0.1 Basophils # 0.0 Plt Morphology Comment Polychromasia Anisocytosis MODERATE=16-30 cells H Microcytosis Tear Drop Cells Ovalocytes Paul Cells Sodium Potassium Chloride Carbon Dioxide Anion Gap BUN Creatinine Estimated GFR (MDRD) Glucose Calcium Magnesium 1.5 L Total Bilirubin AST ALT Alkaline Phosphatase Serum Total Protein Albumin Globulin Albumin/Globulin Ratio Procalcitonin 0.28 Urine Color Urine Clarity Urine pH Ur Specific [place] Urine Protein Urine Glucose (UA) Urine Ketones Urine Blood Urine Nitrite Urine Bilirubin Urine Urobilinogen Ur Leukocyte Esterase Urine RBC Urine WBC Ur Squamous Epith Cells Urine Bacteria U Random Total Protein Urine Creatinine 09/09/19 05:09 WBC RBC Hgb Hct MCV MCH MCHC RDW Plt Count MPV Neutrophils % Neutrophils % (Manual) Band Neuts % (Manual) Lymphocytes % Lymphocytes % (Manual) Reactive Lymphs % Monocytes % Monocytes % (Manual) Eosinophils % Basophils % Neutrophils # Lymphocytes # Monocytes # Eosinophils # Basophils # Plt Morphology Comment Polychromasia Anisocytosis Microcytosis Tear Drop Cells Ovalocytes [place] Cells Sodium 139 Potassium 3.0 L Chloride 110 H Carbon Dioxide 22 Anion Gap 10 BUN 4 L Creatinine 0.56 L Estimated GFR (MDRD) Greater than 90 Glucose 80 Calcium 8.2 Magnesium Total Bilirubin 0.3 AST 32 ALT 13 Alkaline Phosphatase 152 H Serum Total Protein 5.0 L Albumin 2.5 L Globulin 2.5 Albumin/Globulin Ratio 1.0 L Procalcitonin Urine Color Urine Clarity Urine pH Ur Specific [place] Urine Protein Urine Glucose (UA) Urine Ketones Urine Blood Urine Nitrite Urine Bilirubin Urine Urobilinogen Ur Leukocyte Esterase Urine RBC Urine WBC Ur Squamous Epith Cells Urine Bacteria U Random Total Protein Urine Creatinine FMR OB PN: A/P Disposition: Stable Discussion: Date/Time: 09/09/19 0630 24 yo delivered via on 09/08/19 @ 11:01 on day 1. 1. Preeclampsia without severe features Elevated BP during delivery and protein:creatinine ratio of 1.1. Asymptomatic, not requiring magnesium. Will closely monitor blood pressures today. 2. Intraamniotic infection, suspected chorioamnionitis Elevated temperature during delivery (102F), foul smelling amniotic fluid. Was started on Ancef 2g IV TID. Remained afebrile overnight. No antibiotics necessary at this time. Will closely monitor for signs/symptoms of infection. 2. day 1 Routine care. Ice packs for labial/vaginal edema. Pain control with Ibuprofen and [place] as needed. She is breast feeding, encourage feeding on demand and q2-3 hours. This H&P was discussed with Dr. Vanegas who agrees with the above documentation and plan. Addendum - Attending - Attending Attestation Date/Time: 09/09/19 [id number] I personally evaluated the patient and discussed the management with Dr. Abreu I agree with the History, Examination, Assessment and Plan documented above with any addition or exceptions noted below. 24 yo female s/p on 09/08/19 at 11:01 HD# 2 PPD#1 Patient doing well. No F/C. Lochia mild and appropriate. Voiding well. Mild vaginal edema still present. VS, labs reviewed. Agree with PE as documented by resident. NAD. RRR. No murmurs. CTAB. Fundus firm and nontender below umbilicus. 1. sp : Mild 2nd degree and right labial laceration. Healing well. Pain controlled. Continue routine PP care. 2. Intraamniotic infection: Received ancef x 1 due to fever at end of delivery. Placenta sent to path. Labs negative for continued infection. Patient asymptomatic. Fundus nontender. Cultures negative to date. 3. hx of chlamydia: Treated. HERNAN negative. 4. Hypokalemia: Etiology unknown. Asymptomatic. Suspecting poor intake due to labor. Replace and trend. Work up if needed. 5. Contraception: IUD Continue inpatient management. Monitor for s/sx of worsening infection. Kaitlynn
[2019-09-09] MEDS: Ibuprofen 800 MG TAB PO SCH ×3 (06:32→20:49)
[2019-09-09] MEDS: Ferrous Sulfate 325 MG TAB PO SCH ×2 (07:10→16:52)
[2019-09-09] MEDS: Prenatal Vitamin 1 TAB PO SCH (09:00)
[2019-09-09] MEDS: Docusate Calcium (SURFAK) 240 MG CAP PO SCH ×2 (09:00→20:49)
[2019-09-09] MEDS ORDERED: Magnesium 2 GM/50 ML 2 GM in Premix Bag 1 BAG IVPB SCH (10:00)
[2019-09-09] MEDS ORDERED: Potassium Chloride 20 MEQ/100 ML PREMIX BAG IVPB SCH (11:00)
[2019-09-09] MEDS ORDERED: Sodium Chloride 0.9% 10 ML ONE (11:37)
[2019-09-10 00:19] VITALS: TEMP 98.5
[2019-09-10 03:54] LABS: Anion Gap 10 mmol/L (10-20); BUN (Urea Nitrogen) 6 mg/dL (7.0-18.7); Calc. Creatinine Clearance 164 mL/min (70-130); Calcium 8.2 mg/dL (7.8-10.44); Carbon Dioxide 23 mmol/L (22-29); Chloride 108 mmol/L (98-107); Estimated GFR-MDRD Greater than 90; Glucose 94 mg/dL (70-105); Sodium 138 mmol/L (136-145)
[2019-09-10 04:04] LABS: Potassium 2.9 mmol/L (3.5-5.1)
[2019-09-10] MEDS ORDERED: Potassium Chloride 20 MEQ TAB PO SCH ×2 (05:00→15:00)
[2019-09-10] MEDS: Ibuprofen 800 MG TAB PO SCH ×2 (06:02→13:58)
--- NOTE | 2019-09-10 06:33 | PDOC.OBPPN ---
FMR OB PN: Subj - Interval History Hospital Day: 3 Day: 2 Chief Complaint: on 09/08 at 11:01am to MARCELLUS Doherty at 40.4wks Indentification: 24 yo G1 now P1. Interval History: Doing well. Saw yesterday. No concerns or complaints. FMR OB PN: Obj - Maternal Vital signs: Selected Entries 09/09/19 23:30 Temperature 98.5 F Pulse Rate 72 Blood Pressure 121/76 [Semi-Fowlers] Respiratory 20 Rate - Urine output I&O: 09/08/19 09/09/19 09/10/19 06:59 06:59 06:59 Intake Total 1074 Output Total 217 Balance 857 - Lochia Lochia: minimal - Pain Management Intervention: oral medication (Fithian and ibuprofen) FMR OB PN: Exam - Physical Exam General: NAD, awake, alert and oriented HEENT: normocephalic and atraumatic, EOMI, MMM, grossly normal vision, grossly normal hearing Neck: supple, trachea midline Breast: symmetric, non-tender Heart: RRR, normal S1/S2, no murmurs/rubs/gallops, pulses present General: CTAB, no respiratory distress, good air movement, no rales/rhonchi, no wheezing Abdomen: soft, bowel sound present Musculoskeletal: normal gait and station, pulses present Skin: no rash, capillary refill <2 seconds : appropriately tender Psychiatric: intact recent and remote memory, good judgement and insight, normal mood and affect - Pelvic Exam : normal lochia FMR OB PN: Data - Labs Lab results: Laboratory Results - last 24 hr 09/10/19 03:08 Sodium 138 Potassium 2.9 L* Chloride 108 H Carbon Dioxide 23 Anion Gap 10 BUN 6 L Creatinine 0.55 L Estimated GFR (MDRD) Greater than 90 Glucose 94 Calcium 8.2 FMR OB PN: A/P Disposition: Stable Discussion: Date/Time: 09/10/19 0632 4 yo delivered via on 09/08/19 @ 11:01 on day 2. 1. Preeclampsia without severe features Elevated BP during delivery and protein:creatinine ratio of 1.1. Asymptomatic, not requiring magnesium. Has not had any elevated blood pressures . 2. Hypokalemia On two occasions her potassium has been low. Replaced IV and then po today. Ordered urine potassium and creatinine, will notify patient of results. Will supplement PO today. 3. Intraamniotic infection, suspected chorioamnionitis Elevated temperature during delivery (102F), foul smelling amniotic fluid. Was started on Ancef 2g IV TID, received 3 doses. Has been stable, VSS WNL and asymptomatic. 4. day 2 Routine care. Pain control with Ibuprofen and Fithian as needed, will discharge with ibuprofen. She is breast feeding, encourage feeding on demand and q2-3 hours, public relations consultant has seen her. Will likely d/c today w/ f/u with PCP in 1 week. This H&P was discussed with Dr. Vanegas who agrees with the above documentation and plan. Addendum - Attending - Attending Attestation Date/Time: 09/10/19 [id number] I personally evaluated the patient and discussed the management with Dr. Abreu I agree with the History, Examination, Assessment and Plan documented above with any addition or exceptions noted below. 24 yo female s/p on 09/08/19 at 11:01 HD# 3 PPD#2 Doing well. No acute changes overnight. Lochia mild. No F/Cs. Voiding well. Ambulating well. Breast feeding. VS, labs reviewed. Agree with PE as documented by resident. NAD. RRR. No murmurs. CTAB. Fundus firm and nontender below umbilicus. 1. sp : Mild 2nd degree and right labial laceration. Healing well. Pain controlled. Continue routine PP care. 2. Intraamniotic infection: Received ancef x 1 due to fever at end of delivery. Placenta sent to path. Labs negative. Cultures negative. 3. hx of chlamydia: Treated. HERNAN negative. 4. Hypokalemia: Workup pending. Replace. Monitor outpatient. No prior history. Replace mag. 5. Contraception: IUD Ok to d/c to home with baby if no complications of sepsis present. Will need follow up in 2 wks. Needs follow up blood work for hypokalemia. Kaitlynn
[2019-09-10 08:33] VITALS: BP 116/82
[2019-09-10] MEDS: Ferrous Sulfate 325 MG TAB PO SCH ×2 (09:03→16:43)
[2019-09-10] MEDS: Prenatal Vitamin 1 TAB PO SCH (09:04)
[2019-09-10] MEDS: Docusate Calcium (SURFAK) 240 MG CAP PO SCH (09:04)
[2019-09-10] MEDS ORDERED: Magnesium Oxide 400 MG TAB PO SCH (15:00)
--- NOTE | 2019-09-11 23:41 | DIS ---
DATE OF ADMISSION: 09/07/2019 DATE OF DISCHARGE: 09/10/2019 RESIDENT: Selam Abreu MD ADMITTING ATTENDING: Jessica Vanegas MD. CONSULTS: None. PROCEDURES: Vaginal delivery. PRIMARY DIAGNOSIS: Term intrauterine with induction of labor for post dates. SECONDARY DIAGNOSES: Anemia. DISCHARGE MEDICATIONS: Resume home medications including vitamin. DISCONTINUED MEDICATIONS: None. HISTORY OF PRESENT ILLNESS/HOSPITAL COURSE: Ms. Ronald Garza) is a 24-year-old, G1, P0 female at 40 weeks and 3 days gestational age, who presented for a scheduled induction of labor. She tolerated her antepartum course well. She received one dose of Cytotec and her cervix responded favorably and dilated to a 7, after which she naturally dilated to a 10. She delivered a viable male at 11:01 am on 09/08/2019 without complication. At the end of delivery, she spiked a fever of 102 degrees Fahrenheit and a foul odor was noted once the baby was delivered. She was then started on Ancef 2 g t.i.d. for prevention of endometritis. Baby's Apgars were 8 and 9 at 1 and 5 minutes respectively and he was started on Ampicillin and Gentamicin after blood cultures were taken per sepsis protocol. She did well during her course. She required minimal oral pain medications and was discharged home with stool softeners and Motrin for pain. At the end her delivery, her blood pressure was also noted to be elevated; therefore, she underwent a preeclampsia workup, which revealed preeclampsia without severe features. Her protein creatinine ratio was 1.1. She was asymptomatic, however, did not require magnesium. Before discharge, her blood pressure had returned to normal. DISPOSITION: Stable. DISCHARGE INSTRUCTIONS: 1. Location: Home. 2. Diet: Regular. 3. Activity: Ad nita. 4. Follow up with primary care physician in 1 week. Job ID: [id number] [id number]
== END 2019-09-10 18:20 | disposition home or self-care (01) | DRG 805 ==
LOC: L&D 19:14 → 3SE 09-08 14:35
PROVIDERS: ADMIT Student in an Organized Health Care Education/Training Program; ATTEND Student in an Organized Health Care Education/Training Program
PROC: 10E0XZZ Delivery of Products of Conception, External Approach (ICD-10-PCS; principal; 2019-09-08)
PROC: 0HQ9XZZ Repair Perineum Skin, External Approach (ICD-10-PCS; 2019-09-08)
PROC: 3E033VJ Introduction of Other Hormone into Peripheral Vein, Percutaneous Approach (ICD-10-PCS; 2019-09-08)
DX: O13.4 Gestational [pregnancy-induced] hypertension without significant proteinuria, complicating childbirth (principal); O41.1230 Chorioamnionitis, third trimester, not applicable or unspecified; Z37.0 Single live birth; O48.0 Post-term pregnancy; Z3A.40 40 weeks gestation of pregnancy; O70.0 First degree perineal laceration during delivery; O14.04 Mild to moderate pre-eclampsia, complicating childbirth; O99.284 Endocrine, nutritional and metabolic diseases complicating childbirth; E87.6 Hypokalemia
CPT/HCPCS: 36415; 80048; 80053; 81001; 82570; 83735; 84133; 84145; 84156; 85025; 85027; 86780; 86850; 86900; 86901; 87040; 87086; 87340; 88307; J0595; J0690; J1885; J3475; J3480